=== PATIENT | male | born 1985 | race Caucasian/White ===

== ENCOUNTER 2018-02-15 13:46 | Emergency (ER) | payer SELFPAY ==
[~2018-02-15] VITALS: Ht 188 cm; Wt 84.1 kg
[2018-02-15 13:49] VITALS: TEMP 98.4
[2018-02-15] MEDS ORDERED: PROMETHAZINE12.5 M5 (13:52)
[2018-02-15 15:29] LABS: BASO % 0.4 % (0.0-2.0); EOS % 0.2 % (0-4.0); GRAN # 7.2 (1.4-6.5); GRAN % 74.8 % (42.2-75.2); HEMATOCRIT 50.5 % (42.0-52.0); HEMOGLOBIN 17.9 g/dl (13.5-18.0); LYMPH # 1.4 (1.2-3.4); LYMPH % 14.7 % (20.0-51.0); MEAN CELL VOLUME 89 fl (80.0-100.0); MEAN CORPUSCULAR HEMOGLOBIN 31 pg (27.0-31.0); MEAN CORPUSCULAR HGB CONC 35 g/dl (33.0-37.0); MEAN PLATELET VOLUME 9.7 fl (7.4-10.4); MONO # 0.9 (0.1-0.6); MONO % 9.6 % (1.7-9.3); PLATELET COUNT 224 K/mm3 (130-400); REDCELL DISTRIBUTION WIDTH-CV 12.2 % (11.5-14.5)
[2018-02-15 15:42] LABS: ALBUMIN 4.3 gm/dL (3.5-5.0); BILIRUBIN,TOTAL 0.5 mg/dL (0.0-1.0); CALCIUM 9.7 mg/dL (8.4-10.2); CREATININE, serum 1.2 mg/dL (0.66-1.25); POTASSIUM 3.8 mmol/L (3.4-5.0); TOTAL PROTEIN 8.4 gm/dL (6.4-8.2)
[2018-02-15 15:59] LABS: C-REACTIVE PROTEIN 17.6 mg/dL (0.0-0.9)
[2018-02-15 17:57] VITALS: BP 127/91; PULSE 75
[2018-02-15] MEDS ORDERED: FLAGYL500 MG PO (18:00)
[2018-02-15] MEDS ORDERED: PERCOCET 325 MG1 TA2 PO (18:00)
[2018-02-15] MEDS ORDERED: ZOFRAN ODT4 MG PO (18:00)
[2018-02-15] MEDS ORDERED: CIPRO 500MG TA500 MG PO (18:00)
== END 2018-02-15 18:11 | disposition home or self-care (01) ==
LOC: COL.ER 13:46 → EDSEX 13:47 → COL.ER 18:11
PROVIDERS: Physician Assistant
DX: K52.9 Noninfective gastroenteritis and colitis, unspecified (principal)
CPT/HCPCS: J1885; J2405; J7030; Q9967